=== PATIENT | female | born 1940 | race Caucasian/White ===

== ENCOUNTER → 2024-03-10 13:44 | Outpatient (REF) | payer OTHER, SELFPAY ==
[2024-03-10 15:32] LABS: % Eosinophils 5.6 % (0-6); % Immature Granulocytes 0.3 % (0-0.5); % Monocytes 7.3 % (1.7-9.3); % Neutrophils 43.8 % (42.2-75.2); Absolute Basophils 0.1 10^3/uL (0-0.2); Absolute Eosinophils 0.4 10^3/uL (0-0.7); Absolute Lymphocytes 3.1 10^3/uL (1.2-3.4); Absolute Monocytes 0.5 10^3/uL (0.1-0.6); Absolute Neutrophils 3.2 10^3/uL (1.4-6.5); Hematocrit 42.8 % (37.0-47.0); Hemoglobin 14.3 g/dL (12.0-16.0); Mean Corp Hgb Conc. 33.4 g/dL (33.0-37.0); Mean Corpuscular Hgb 29.8 pg (27.0-31.0); Mean Corpuscular Volume 89.2 fL (81.0-99.0); Mean Platelet Volume 10.4 fL (7.4-10.4); Nucleated Red Blood Cells % 0 %; Platelet Count 261 10^3/uL (130-400); Red Cell Dist. Width 12.8 % (11.5-14.5); White Blood Cell Count 7.3 10^3/uL (4.8-10.8)
[2024-03-10 15:44] LABS: ALT (SGPT) 23 U/L (0-35); AST (SGOT) 31 U/L (14-36); Albumin 4.4 g/dl (3.5-5.0); Alkaline Phosphatase 86 U/L (38-126); Blood Urea Nitrogen 16 mg/dl (7-17); Calcium 10.1 mg/dl (8.4-10.2); Carbon Dioxide 25 mmol/L (22-30); Chloride 104 mmol/L (98-107); Glucose 95 mg/dl (70-99); HDL Cholesterol 74 mg/dl; LDL Cholesterol, Calculated 152 mg/dl; Potassium 5.2 mmol/L (3.5-5.1); Sodium 138 mmol/L (135-145); Total Bilirubin 0.8 mg/dl (0.2-1.3); Total Cholesterol 243 mg/dl (50-199); Triglyceride 87 mg/dl (10-149); Very Low Density Lipoprotein 17 mg/dl (0-30); eGFR 49.55
[2024-03-10 16:11] LABS: TSH 2.04 uIU/ml (0.47-4.68)
== END ==
LOC: HWLAB 13:44
PROVIDERS: ATTENDING PHYSICIAN Internal Medicine
DX: R73.01 Impaired fasting glucose (principal); R74.8 Abnormal levels of other serum enzymes; E78.00 Pure hypercholesterolemia, unspecified; R63.5 Abnormal weight gain
CPT/HCPCS: 36415; 80053; 80061; 83036; 84443; 85025

== ENCOUNTER 2024-04-28 17:04 | Emergency (ER) | payer OTHER, SELFPAY ==
[2024-04-28 17:11] VITALS: BP 160/77
[2024-04-28 17:43] LABS: % Basophils 0.8 % (0-2); % Eosinophils 6.1 % (0-6); % Lymphocytes 46.2 % (20.5-51.1); % Monocytes 7.9 % (1.7-9.3); Absolute Basophils 0.1 10^3/uL (0-0.2); Absolute Eosinophils 0.4 10^3/uL (0-0.7); Absolute Lymphocytes 2.9 10^3/uL (1.2-3.4); Absolute Monocytes 0.5 10^3/uL (0.1-0.6); Absolute Neutrophils 2.4 10^3/uL (1.4-6.5); Hematocrit 44.4 % (37.0-47.0); Mean Corp Hgb Conc. 33.8 g/dL (33.0-37.0); Mean Corpuscular Hgb 30.2 pg (27.0-31.0); Mean Corpuscular Volume 89.5 fL (81.0-99.0); Mean Platelet Volume 9.8 fL (7.4-10.4); Nucleated Red Blood Cells % 0 %; Platelet Count 270 10^3/uL (130-400); Red Blood Cell Count 4.96 10^6/uL (4.20-5.40); Red Cell Dist. Width 12.6 % (11.5-14.5); White Blood Cell Count 6.2 10^3/uL (4.8-10.8)
[2024-04-28 17:52] LABS: ALT (SGPT) 26 U/L (0-35); AST (SGOT) 29 U/L (14-36); Albumin 4.3 g/dl (3.5-5.0); Alkaline Phosphatase 82 U/L (38-126); Blood Urea Nitrogen 13 mg/dl (7-17); Carbon Dioxide 24 mmol/L (22-30); Chloride 105 mmol/L (98-107); Glucose 109 mg/dl (70-99); Potassium 4.9 mmol/L (3.5-5.1); Sodium 139 mmol/L (135-145); Total Bilirubin 0.6 mg/dl (0.2-1.3); Total Protein 6.7 g/dl (6.3-8.2); eGFR 55.55
--- NOTE | 2024-04-28 18:16 | ED.GENMED ---
History of Present Illness
General
Chief Complaint: Chest Pain
Time Seen by Provider: 04/28/24 18:07
History of Present Illness
History of Present Illness:
HPI: The patient presents with chest discomfort ongoing for the last several weeks. This is associated with nausea. The chest discomfort described as a pressure sensation but does not worsen with exertion. Is been constantly there for the past 3
weeks and she cannot find a comfortable position. Her daughter had her stop her statin that she had been taking but this has not helped. She has never been to a [facility].
EXAM:
GENERAL: Well appearing in no distress
HEENT: Moist oral mucosa
CARDIOVASCULAR: No murmurs, normal heart rate, regular rhythm, No chest wall tenderness
PULMONARY: No respiratory distress, breath sounds are clear and equal
ABDOMEN: Soft with no peritoneal signs, no tenderness
NEUROLOGIC: Excellent strength all extremities, no coordination deficits
PSYCHIATRIC: Appropriate mental status, normal insight and judgement, does not appear particularly anxious
EXTREMITIES: Nontender, no edema, moves all extremities equally
SKIN: No rash, no lesions
TIME OF INITIAL ENCOUNTER: 6 PM
NUMBER AND COMPLEXITY OF PROBLEMS ADDRESSED AT THE ENCOUNTER
� Chronic conditions affecting care: Asthma, anxiety
� Acute Exacerbation and/or Progression of Chronic Illness: This is an acute problem
� Differential Diagnosis includes: Exacerbation of asthma unlikely, ACS unlikely, aortic dissection less likely as she has equal radial pulses
AMOUNT AND/OR COMPLEXITY OF DATA TO BE REVIEWED AND ANALYZED
� I performed an independent evaluation of and my interpretation is:
EKG: Sinus 85, left axis deviation, nonspecific ST abnormality abnormality without significant change from 2012
CT: CTA personally reviewed and shows no evidence of dissection
X-rays:
Laboratory Studies: CBC and chemistries unremarkable. Troponin less than 0.012. BNP is only 250.
Other:
� Review of other/old records: The patient was seen here in 2020 with wound related issues
� Clinical information was obtained by an independent historian: I spoke to the daughter at bedside
� Prescriptions/Medications Considered but not given: Considered benzos however the patient does not appear to be significantly anxious currently
� Further testing considered but not performed:
RISK OF COMPLICATIONS AND/OR MORBIDITY OR MORTALITY OF PATIENT MANAGEMENT
� Social determinants of health affecting care: Lives at home.
� Discussion with other providers:
� Escalation of care including admission/observation vs risk of discharge considered: The patient has had constant pain for 3 weeks with no exertional symptoms. Her troponin and EKG are unremarkable. BNP effectively rules out
CHF (daughter felt that she appeared somewhat short of breath yesterday). CT imaging was obtained as she did have discomfort radiating into her back. Nitroglycerin was tried which this does not help. The daughter and the patient does question the
possibly of anxiety as symptoms seem to be associated with anxiety especially when this started a few weeks ago. Recommend with cardiology and PMD follow-up.
Past History
Past History
ED Past Medical History: Hypercholesterolemia and Other (Asthma, cranial neuralgia, stress incontinence)
ED Past Surgical History: Gynecological (Hysterectomy) and Other (Hand surgery, and breast augmentation)
Social History
Tobacco: Former smoker
Alcohol: Occasional
Personal:
Living: with family
Employment: Retired
Family History
Family History: Negative Diabetes, Hypertension or CAD
Phy Exam
Physical Exam
Physical Exam:
See HPI
Scores
Heart Score for Chest Pain Patients
STEMI patient?: Not applicable
Course
Orders/Labs/Results
Orders:
Orders
04/28/24 17:05
ECG [Electrocardiogram (*1)] Urgent
Reason for Study: Chest Pain
EKG- Treatment ONCE
04/28/24 17:19
Complete Blood Count/With Diff Urgent
Comprehensive Metabolic Panel Urgent
04/28/24 18:28
CT Chest Angio W/wo Iv Contras Urgent
Comment:
Reason For Exam: eval for dissection / chest/back pain
04/28/24 18:33
NT-proBNP Urgent
Troponin I Urgent
04/28/24 19:28
Nitroglycerin Sublingual [Nitrostat (Sublingual)] 0.4 mg SL NOW STA
Abnormal Lab Results
04/28/24
17:19
Neutrophils % 39.0 L %
(42.2-75.2)
Eosinophils % 6.1 H %
(0-6)
Glucose 109 H mg/dl
(70-99)
04/28/24 17:19
04/28/24 17:19
Vital Signs
Initial and Last Documented VS:
Initial Vital Signs
Temp Pulse Resp BP Pulse Ox
98.2 F 83 20 160/77 98
04/28/24 17:11 04/28/24 17:11 04/28/24 17:11 04/28/24 17:11 04/28/24 17:11
Last Documented Vital Signs
Temp Pulse Resp BP Pulse Ox
98.2 F 99 22 141/98 99
04/28/24 18:25 04/28/24 18:25 04/28/24 18:25 04/28/24 18:25 04/28/24 18:25
*Critical Care Note
Total Time (30-74mins, 75-104mins- exclusive of procedures): Not Applicable
ED Attending Note
-
Portions of this chart may have been created with voice recognition software.� Occasional wrong word or��sound alike� substitutions may have occurred due to the inherent limitations of voice recognition software.
Discharge Plan
Departure
Patient Disposition: Home (Routine Discharge)
Date of Disposition: 04/28/24
Time of Disposition: 20:09
Patient with high blood pressure during this ER visit?: Yes
Discharge Problem:
Chest pain
Instructions: Chest Pain CBC Follow Up
Prescriptions:
No Action
citalopram 20 MG tablet
40 mg PO DAILY
lorazepam 1 MG tablet
1 mg PO PRN PRN (Reason: anxiety)
zolpidem 10 MG tablet
10 mg PO HSPRN PRN (Reason: insomnia)
Pepcid AC
1 tab PO DAILY
pantoprazole 40 MG tablet,delayed release (DR/EC)
40 mg PO DAILY Qty: 20 1RF
Referrals:
Grupo Overton MD [Active] - Follow up in 2-3 days
UNKNOWN - PT DOES,NOT KNOW [Family Provider] -
Activity Restrictions/Additional Instructions:
The cause of your symptoms is unclear. This could be anxiety related or even coming from the chest wall. I recommend that you follow-up with a [employer] [employer]�I have given you the contact information Dr. Overton should be calling you urgently..
Given the concerns for the possibility of anxiety, I recommend you also follow-up with primary care doctor as well.
Interventions
Interventions:
*Risk Screen - Suicide Last Done: 04/28/24 17:11
*General Assessment Last Done: 04/28/24 17:11
*Neglect/Abuse Screening Last Done: 04/28/24 17:11
ED- Fall Risk Assessment Last Done: 04/28/24 18:28
*ED COVID-19 Vaccine History Last Done: 04/28/24 18:26
ED- Cardiac Assessment Last Done: 04/28/24 18:27
Discharge Date and Time
Print Language: CZECH
[2024-04-28 18:24] VITALS: BMI 28.4
[2024-04-28 18:25] VITALS: BP 141/98
[2024-04-28 19:01] LABS: NT-proBNP 250 pg/ml
[2024-04-28 19:05] LABS: Troponin I < 0.012 ng/ml
[2024-04-28] MEDS: NITROSTAT (SUBLINGUAL) 0.4 MG SL (19:39)
[2024-04-28 19:40] VITALS: BP 172/81
[2024-04-28 20:00] VITALS: BP 139/71
[2024-04-28] MEDS: XANAX 0.25 MG PO (20:26)
== END 2024-04-28 20:53 | disposition home or self-care (01) ==
LOC: EMR 17:04
PROVIDERS: EMERGENCY PHYSICIAN Emergency Medicine
DX: R07.89 Other chest pain (principal); R11.0 Nausea; E78.00 Pure hypercholesterolemia, unspecified; J45.909 Unspecified asthma, uncomplicated; G52.9 Cranial nerve disorder, unspecified; N39.3 Stress incontinence (female) (male); I25.10 Atherosclerotic heart disease of native coronary artery without angina pectoris; Z87.891 Personal history of nicotine dependence; Z90.710 Acquired absence of both cervix and uterus
CPT/HCPCS: 99284; 71275; 80053; 83880; 84484; 85025; 93005; Q9967

== ENCOUNTER → 2025-07-30 14:24 | Outpatient (REF) | payer OTHER, SELFPAY | LOC: HWRAD 14:24 | PROVIDERS: ATTENDING PHYSICIAN Physician Assistant | DX: R05.2 Subacute cough (principal) | CPT/HCPCS: 71046 ==